=== PATIENT | female | born 1985 | race Two or more races ===

== ENCOUNTER 2024-05-18 19:17 | Emergency (ER) | payer SELFPAY ==
[~2024-05-18] VITALS: Ht 149.9 cm; Wt 54.4 kg
[2024-05-18] MEDS ORDERED: IBUPROFEN 400 MG TABLET ONE (22:37)
[2024-05-18] MEDS ORDERED: IBUPROFEN 200 MG TABLET ONE (22:37)
[2024-05-18] MEDS: IBUPROFEN 400 MG TABLET PO ONE (22:42)
[2024-05-19 00:41] VITALS: BP 121/79; TEMP 98.1; O2SAT 99
== END 2024-05-19 00:41 | disposition home or self-care (01) ==
LOC: ER 19:25
DX: S23.3XXA Sprain of ligaments of thoracic spine, initial encounter (principal); S33.5XXA Sprain of ligaments of lumbar spine, initial encounter; S93.401A Sprain of unspecified ligament of right ankle, initial encounter; Z88.0 Allergy status to penicillin; W19.XXXA Unspecified fall, initial encounter; Y93.89 Activity, other specified; Y92.89 Other specified places as the place of occurrence of the external cause; Y99.8 Other external cause status
CPT/HCPCS: 72074-TC; 72100-TC; 73610-TC